=== PATIENT | female | born 1990 | race Caucasian/White ===

== ENCOUNTER 2019-02-08 08:18 | Emergency (ER) | payer MEDICAID ==
[~2019-02-08] VITALS: Ht 175.3 cm; Wt 94.3 kg
[2019-02-08 08:20] VITALS: BP 124/79
--- NOTE | 2019-02-08 08:31 | NUR ---
PATIENT AMBULATED TO BED 3.
--- NOTE | 2019-02-08 09:30 | NUR ---
PT WAS A/OX3, CO VAGINAL BLEEDING WITH 14 WEEKS AND FEELING OF BACK PAIN. PT SPEAKS FULL SENTENCES, FOLLOWS COMMAND, DENIES PURCELL AND DIZZINESS. NO SOB. BREATHING EVEN.
[2019-02-08 09:53] LABS: BASOPHILS # (AUTO) 0.1 K/uL (0.00-0.22); BASOPHILS % (AUTO) 0.6 % (0.0-2.0); EOSINOPHILS # (AUTO) 0.1 K/uL (0-0.4); EOSINOPHILS % (AUTO) 1.4 % (0.0-4.0); HEMATOCRIT 37.3 % (36-48); HEMOGLOBIN 12.5 g/dL (12.0-16.0); LYMPHOCYTES # (AUTO) 1.7 K/uL (2.5-16.5); LYMPHOCYTES % (AUTO) 20.3 % (20.5-51.1); MEAN CORPUSCULAR HEMOGLOBIN 30 pg (27-31); MEAN CORPUSCULAR HGB CONC 33 g/dL (33-37); MEAN CORPUSCULAR VOLUME 88.9 fL (80-94); MONOCYTES # (AUTO) 0.5 K/uL (0.8-1.0); MONOCYTES % (AUTO) 6.6 % (1.7-9.3); NEUTROPHILS # (AUTO) 5.9 K/uL (1.8-7.7); NEUTROPHILS % (AUTO) 71.1 % (42.2-75.2); PLATELET COUNT (AUTO) 209 K/uL (140-450); RED BLOOD CELL COUNT(AUTO) 4.19 MIL/uL (4.20-5.40); RED CELL DISTRIBUTION WIDTH 14.3 % (11.6-13.7); WHITE BLOOD COUNT (AUTO) 8.3 K/uL (4.8-10.8)
[2019-02-08 09:56] LABS: APPEARANCE,URINE CLEAR (CLEAR); BILIRUBIN,URINE NEGATIVE (NEGATIVE); COLOR,URINE YELLOW (YELLOW); LEUKOCYTE ESTERASE ,URINE NEGATIVE (NEGATIVE); NITRITE, URINE NEGATIVE (NEGATIVE); UGLUCOSE NEGATIVE (NEGATIVE)
[2019-02-08 10:06] LABS: BLOOD, URINE 1+ (NEGATIVE); RBC,URINE 0-5 /HPF (0-5); WBC,URINE 0-5 /HPF (0-5)
--- NOTE | 2019-02-08 11:00 | NUR ---
Patient discharged with v/s stable. Written and verbal after care instructions given and explained. Patient verbalized understanding. Ambulatory with steady gait. All questions addressed prior to discharge. Advised to follow up with PMD.
[2019-02-08 11:06] VITALS: BP 121/75
== END 2019-02-08 11:00 | disposition home or self-care (01) ==
LOC: MED 08:18
DX: O20.0 Threatened abortion (principal); Z3A.15 15 weeks gestation of pregnancy
CPT/HCPCS: 36415; 76805; 81001; 84702; 85025; 86900; 86901; 99284; Q0092

== ENCOUNTER 2019-03-23 17:42 | Observation (INO) | payer MEDICAID ==
[~2019-03-23] VITALS: Ht 167.6 cm; Wt 98.4 kg
[2019-03-23 18:35] VITALS: BP 131/67
== END 2019-03-23 19:40 | disposition home or self-care (01) ==
LOC: MLD 17:42
PROVIDERS: ADMIT Obstetrics & Gynecology; ATTEND Obstetrics & Gynecology
DX: O36.832 Maternal care for abnormalities of the fetal heart rate or rhythm, second trimester (principal); Z3A.22 22 weeks gestation of pregnancy
CPT/HCPCS: 59025; 76815; 81000; G0378; Q0092

== ENCOUNTER 2019-07-17 09:41 | Observation (INO) | payer MEDICAID, SELFPAY ==
[~2019-07-17] VITALS: Ht 175.3 cm; Wt 105.2 kg
== END 2019-07-17 13:51 | disposition home or self-care (01) ==
LOC: MLD 09:41
PROVIDERS: ADMIT Obstetrics & Gynecology; ATTEND Obstetrics & Gynecology
DX: Z03.818 Encounter for observation for suspected exposure to other biological agents ruled out (principal); O32.1XX0 Maternal care for breech presentation, not applicable or unspecified; Z3A.37 37 weeks gestation of pregnancy
CPT/HCPCS: 59025; 76805; G0378; Q0092; U0003; 36415

== ENCOUNTER 2019-07-21 06:53 | Inpatient (IN) | payer MEDICAID ==
[~2019-07-21] VITALS: Ht 175.3 cm; Wt 105.2 kg
[2019-07-21] MEDS ORDERED: LACTATED RINGERS 1,000 ML IV SCH (07:40)
[2019-07-21 08:13] LABS: BASOPHILS # (AUTO) 0.1 K/uL (0.00-0.22); BASOPHILS % (AUTO) 0.6 % (0.0-2.0); EOSINOPHILS # (AUTO) 0.1 K/uL (0-0.4); EOSINOPHILS % (AUTO) 1.2 % (0.0-4.0); HEMATOCRIT 36.6 % (36-48); HEMOGLOBIN 12.3 g/dL (12.0-16.0); LYMPHOCYTES # (AUTO) 1.2 K/uL (2.5-16.5); LYMPHOCYTES % (AUTO) 14.5 % (20.5-51.1); MEAN CORPUSCULAR HEMOGLOBIN 30 pg (27-31); MEAN CORPUSCULAR HGB CONC 34 g/dL (33-37); MONOCYTES # (AUTO) 0.7 K/uL (0.8-1.0); NEUTROPHILS # (AUTO) 6.2 K/uL (1.8-7.7); NEUTROPHILS % (AUTO) 75.7 % (42.2-75.2); PLATELET COUNT (AUTO) 187 K/uL (140-450); RED BLOOD CELL COUNT(AUTO) 4.11 MIL/uL (4.20-5.40); RED CELL DISTRIBUTION WIDTH 14.2 % (11.6-13.7); WHITE BLOOD COUNT (AUTO) 8.2 K/uL (4.8-10.8)
[2019-07-21 08:17] LABS: APPEARANCE,URINE SL CLOUDY (CLEAR); BILIRUBIN,URINE NEGATIVE (NEGATIVE); BLOOD, URINE TRACE-L (NEGATIVE); COLOR,URINE YELLOW (YELLOW); LEUKOCYTE ESTERASE ,URINE NEGATIVE (NEGATIVE); NITRITE, URINE NEGATIVE (NEGATIVE); UGLUCOSE NEGATIVE (NEGATIVE)
[2019-07-21 09:23] VITALS: BP 108/67
[2019-07-21 09:32] LABS: ANION GAP 15.1 (8-16); CARBON DIOXIDE 22.2 mmol/L (21-32); CREATININE 0.8 mg/dL (0.6-1.3); POTASSIUM 4.3 mmol/L (3.5-5.1); TOTAL BILIRUBIN 0.5 mg/dL (0.0-1.0)
--- NOTE | 2019-07-21 10:41 | NUR ---
PATIENT HAS BEEN SCREENED AND CATEGORIZED LOW NUTRITION RISK. PATIENT WILL BE SEEN WITHIN 7 DAYS OF ADMISSION. 07/27/[address]
[2019-07-21] MEDS ORDERED: MIDAZOLAM 2 MG/2 ML VIAL ONE (11:53)
[2019-07-21] MEDS ORDERED: MORPHINE PRES FREE 10 MG/10 ML AMP IV ONE (11:53)
[2019-07-21] MEDS ORDERED: OXYTOCIN 10 UNITS/ML VIAL ONE (13:05)
[2019-07-21] MEDS ORDERED: ONDANSETRON 4 MG/2 ML VIAL ONE (13:44)
[2019-07-21] MEDS ORDERED: diphenhydrAMINE 50 MG/ML VIAL ONE (13:44)
[2019-07-21] MEDS ORDERED: diphenhydrAMINE 50 MG/ML VIAL IVP PRN ×2 (14:00)
[2019-07-21] MEDS ORDERED: HYDROmorphone 1 MG/ML AMP IVP PRN (14:00)
[2019-07-21] MEDS ORDERED: ONDANSETRON 4 MG/2 ML VIAL IVP PRN ×2 (14:00)
[2019-07-21] MEDS ORDERED: MEPERIDINE 25 MG/ML SYR IVP PRN (14:00)
[2019-07-21] MEDS ORDERED: NALOXONE 0.4 MG/ML VIAL IVP PRN ×3 (14:00)
[2019-07-21] MEDS: OXYTOCIN 20 UNITS/LR PREMIX 1,000 ML IV ONE ×2 (16:03→16:15)
[2019-07-21] MEDS: KETOROLAC 30 MG/ML VIAL IM/IVP SCH (17:42)
[2019-07-21] MEDS ORDERED: OXYTOCIN 20 UNITS/LR PREMIX 1,000 ML IV SCH (18:59)
[2019-07-21] MEDS ORDERED: KETOROLAC 30 MG/ML VIAL IVP PRN (19:00)
[2019-07-21] MEDS ORDERED: HYDROmorphone PFS 2 MG/ML SYR IVP PRN (19:00)
[2019-07-21] MEDS ORDERED: MEASLES, MUMPS, AND RUBELLA 1 VIAL SQVAC PRN (19:00)
--- NOTE | 2019-07-21 20:25 | NUR ---
INCENTIVE SPIROMETRY COMPLETED AT THIS TIME. PATIENT COMPLETED AVERAGE INSPIRED VOLUME OF 1500ml OUT OF 10 BREATHS. PREDICTED VOLUME OF 2800ml. PATIENT TOLERATED PROCEDURE WELL. AND RN AT BEDSIDE. WILL CONTINUE TO MONITOR PATIENT.
[2019-07-22] MEDS: OXYTOCIN 20 UNITS in LACTATED RINGERS 1,000 ML IV SCH ×2 (00:50→10:03)
[2019-07-22] MEDS: KETOROLAC 30 MG/ML VIAL IM/IVP SCH ×3 (00:51→13:00)
[2019-07-22 08:40] LABS: BASOPHILS % (AUTO) 0.4 % (0.0-2.0); EOSINOPHILS % (AUTO) 0.5 % (0.0-4.0); HEMATOCRIT 35.2 % (36-48); HEMOGLOBIN 11.7 g/dL (12.0-16.0); LYMPHOCYTES # (AUTO) 0.7 K/uL (2.5-16.5); LYMPHOCYTES % (AUTO) 7.2 % (20.5-51.1); MEAN CORPUSCULAR HEMOGLOBIN 30 pg (27-31); MEAN CORPUSCULAR HGB CONC 33 g/dL (33-37); MEAN CORPUSCULAR VOLUME 89.3 fL (80-94); MONOCYTES # (AUTO) 0.6 K/uL (0.8-1.0); MONOCYTES % (AUTO) 6.5 % (1.7-9.3); NEUTROPHILS # (AUTO) 8.2 K/uL (1.8-7.7); NEUTROPHILS % (AUTO) 85.4 % (42.2-75.2); PLATELET COUNT (AUTO) 173 K/uL (140-450); RED BLOOD CELL COUNT(AUTO) 3.94 MIL/uL (4.20-5.40); RED CELL DISTRIBUTION WIDTH 14.2 % (11.6-13.7); WHITE BLOOD COUNT (AUTO) 9.6 K/uL (4.8-10.8)
[2019-07-22] MEDS: ACETAMINOPHEN 325 MG TAB PO PRN (21:25)
[2019-07-23] MEDS: ACETAMINOPHEN 325 MG TAB PO PRN (03:57)
[2019-07-23] MEDS: BISACODYL 5 MG TABEC PO SCH (10:47)
[2019-07-23] MEDS: SIMETHICONE 80 MG TAB.CHEW PO SCH ×3 (10:47→17:46)
[2019-07-23] MEDS: DOCUSATE SODIUM 100 MG GELCAP PO SCH (10:47)
[2019-07-23] MEDS: IBUPROFEN 600 MG TAB PO PRN (12:58)
[2019-07-23] MEDS ORDERED: SODIUM PHOSPHATE 118 ML ENEM RC PRN (19:00)
[2019-07-24] MEDS: IBUPROFEN 600 MG TAB PO PRN (04:28)
[2019-07-24] MEDS: BISACODYL 5 MG TABEC PO SCH (09:29)
[2019-07-24] MEDS: SIMETHICONE 80 MG TAB.CHEW PO SCH (09:29)
[2019-07-25] MEDS: SIMETHICONE 80 MG TAB.CHEW PO SCH ×2 (09:34→14:20)
[2019-07-25] MEDS: BISACODYL 5 MG TABEC PO SCH (09:34)
[2019-07-25] MEDS: DOCUSATE SODIUM 100 MG GELCAP PO SCH (09:34)
[2019-07-25] MEDS: IBUPROFEN 600 MG TAB PO PRN (09:47)
== END 2019-07-25 15:15 | disposition home or self-care (01) | DRG 540 ==
LOC: MLD 06:53 → EDSTATUS 12:00 → MFCC 13:20
PROVIDERS: ADMIT Obstetrics & Gynecology; ATTEND Obstetrics & Gynecology
PROC: 10D00Z1 Extraction of Products of Conception, Low, Open Approach (ICD-10-PCS; principal; 2019-07-25)
DX: O32.1XX0 Maternal care for breech presentation, not applicable or unspecified (principal); E66.9 Obesity, unspecified; O99.214 Obesity complicating childbirth; O34.03 Maternal care for unspecified congenital malformation of uterus, third trimester; Q51.3 Bicornate uterus
CPT/HCPCS: 36415; 51702; 76805; 80053; 81001; 85025; 86592; 86886; 86900; 86901; 87081; 87086; 90715; J0690; J1200; J1885; J2250; J2270; J2405; J2590; J7060; J7120; Q0092